=== PATIENT | female | born 1990 ===

== ENCOUNTER → 2020-07-28 14:39 | Outpatient (BNVA) | payer MEDICAID, SELFPAY | PROVIDERS: PCP Internal Medicine; Referring Provider Internal Medicine; Visit Provider Anesthesiology | DX: M47.27 Other spondylosis with radiculopathy, lumbosacral region (principal); M51.36 Other intervertebral disc degeneration, lumbar region | CPT/HCPCS: 99212 ==

== ENCOUNTER → 2020-09-29 14:10 | Outpatient (BNVA) | payer MEDICAID, SELFPAY | PROVIDERS: PCP Internal Medicine; Referring Provider Internal Medicine; Visit Provider Anesthesiology | DX: M47.27 Other spondylosis with radiculopathy, lumbosacral region (principal); M51.36 Other intervertebral disc degeneration, lumbar region | CPT/HCPCS: 99212 ==

== ENCOUNTER 2021-10-28 09:15 | Outpatient (REF) | payer MEDICAID, SELFPAY ==
--- NOTE | ~2021-10-28 | XR_ITS ---
EXAMINATION: XR KNEE, RIGHT CLINICAL INFORMATION: Pain in the right knee COMPARISON: None TECHNIQUE: Four views of the right knee. FINDINGS: Bones and soft tissues are normal. No fracture or joint effusion. Alignment is anatomic. Joint spaces are well maintained. No abnormal soft tissue calcification. XR/XR knee RT 4V IMPRESSION: Normal right knee.
== END 2021-10-28 09:16 | disposition home or self-care (01) ==
LOC: HO.XRAY 09:15
PROVIDERS: PCP Internal Medicine; Visit Provider Internal Medicine
DX: M25.561 Pain in right knee (principal)
CPT/HCPCS: 73564

== ENCOUNTER 2021-11-02 07:29 | Emergency (ER) | payer MEDICAID, SELFPAY ==
[2021-11-02 08:04] VITALS: BP 121/82; PULSE 110; RESP 17; TEMP 36; O2SAT 100; BMI 24.5
--- NOTE | 2021-11-02 08:45 | ED_ITS ---
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 She denies any recent travel or sick contacts. She denies any fevers, chills, dizziness, headache, neck pain/stiffness, trouble swallowing or breathing, chest pain or shortness of breath, cough, dyspnea on exertion, orthopnea, palpitations, nausea/vomiting or constipation, abdominal pain, rashes, weakness or any other symptoms complaints or concerns at this time. MD elicited complaint: sore throat Onset (ago): day(s) (2) Consistency: constant and progressively worsening Severity: mild Able to tolerate fluids by mouth: Yes Exacerbating factors: swallowing Relieving factors: nothing Associated symptoms: denies other symptoms Treatments prior to arrival: none Related Data Previous Rx's Medication Instructions Recorded gabapentin 400 mg capsule 400 mg PO TID PRN 30 Days #90 cap 09/29/20 amoxicillin 875 mg-potassium 1 tab PO BID 10 Days #20 tab 11/02/21 clavulanate 125 mg tablet Allergies Allergy/AdvReac Type Severity Reaction Status Date / Time No Known Allergies Allergy Verified 09/29/20 14:27 [No Known Allergies*] Review of Systems Review of Systems: Constitutional : No Weight loss, No Fever, No Chills, No Night Sweats, No Fatigue, No Malaise ENT/Mouth : Positive sore throat, No Hearing loss, No Ear Pain, No Nasal Congestion, No Sinus Pain, No Hoarseness, No Rhinorrhea, No Swallowing Difficulty Eyes: No Eye Pain, No Swelling, No Redness, No Foreign Body, No Discharge, No Vision Changes Cardiovascular : No Chest Pain, No SOB, No Dyspnea on Exertion, No Orthopnea, No Edema, No Palpitations Respiratory : No Cough, No Sputum, No Wheezing, No Smoke Exposure, No Dyspnea Gastrointestinal : No Nausea, No Vomiting, No Diarrhea, No Constipation, No abdominal Pain, No Hematochezia, No Melena Genitourinary : no irregular bleeding, No Dysuria, No Urinary Frequency, No Hematuria, No Urinary Incontinence, No Urgency, No Flank Pain, No Urinary Flow Changes, No Hesitancy Musculoskeletal : No joint pain, No Myalgias, No Joint Swelling Skin : No Skin Lesions, No rash Neuro : No Weakness, No Numbness, No Paresthesias, No Loss of Consciousness, No Dizziness, No Headache Psych : No Anxiety/Panic, No Depression, No SI/HI/AH/VH, No Social Issues, Heme/Lymph: No Bruising, No Bleeding,No Lymphadenopathy Endocrine : No Polyuria, No Polydipsia, No Temperature Intolerance Yes all other systems are reviewed and are negative [facility] Past Medical History Attestation statement: The following information was validated with the patient. Medical History Disc degeneration, lumbar Spondylosis of lumbosacral spine with radiculopathy Social History Social History Advance Directives: No Advance Directives Information Provided: Yes Patient : No Physical Exam Vital Signs: Vital Signs: Last Vital Signs Temp 96.8 F 11/02/21 08:04 Pulse 110 H 11/02/21 08:04 Resp 17 11/02/21 08:04 BP 121/82 11/02/21 08:04 Pulse Ox 100 11/02/21 08:04 BMI result Body Mass Index 24.5 vital signs have been reviewed as normal and appeared to be correct. Blood pressure normal. Heart rate 110. Respiration rate normal. Temperature normal. Oxygen saturation normal. Appearance: Alert. Oriented X3. No acute distress. Head: Normal external exam. Normocephalic. Atraumatic. Eyes: PERRLA. EOMI. Conjunctiva and sclera normal. Eyelids normal. ENT: EAC normal. TM's Normal. Posterior pharynx mildly erythematous tonsils noted to have exudate bilaterally. Uvula is midline. Moist mucous membranes. No trismus noted. No drooling noted. No muffled voice noted. Neck: Normal inspection. Neck supple. FROM. No adenopathy. Thyroid Normal. No meningeal signs. No neck mass noted. CVS: Normal heart rate and rhythm. Heart sound normal. Pulses normal throughout. No murmurs/rales/gallops. Respiratory: No respiratory distress. Painless inspiration. Breath sounds normal. No wheezes/rales/rhonchi noted. Chest nontender. No accessory muscle usage noted or decreased air movement noted. Back: Full range of motion noted. No rashes/lesion/induration/fluctuance or signs of infection noted. Skin: Skin warm and dry. Normal skin color. Normal skin turgor. No rashes/lesions/lacerations noted. Extremities: Extremities exhibit normal range of motion. Extremities nontender. Neuro: Oriented X 3. No motor deficit. No sensory deficit. Reflexes normal. Normal steady gait. No focal neuro deficits noted. Vascular: + radial pulses/+ 2 distal pedal pulses/+2 dorsalis pedis b/l. Normal cap refill. No cyanosis noted to upper extremity nails and lower extremity toes nails. 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 Will test for COVID and strep. If negative for COVID will DC home with antibiotics for strep along with instructions to return if any new or worsening symptoms follow-up with primary care provider and to self isolate per CDC guidelines. Patient understands agrees this plan. MDM - URI/Sore Throat Medical Records Attestation: I reviewed the patient's medical records. Lab Data Attestation: I reviewed the patient's lab results. Labs: Lab Results 11/02/21 11/02/21 Range/Units 09:08 09:08 COVID-19 (FRANTZ) Negative (Negative) COVID-19 Clin Com See Note S. pyogenes GrpA GISELLA Negative (Negative) Discharge Plan Discharge Clinical Impression: Acute bacterial pharyngitis Patient Disposition: Home, Self-Care Instructions: Pharyngitis (ED) Prescriptions: New amoxicillin-pot clavulanate 875-125 mg tablet 1 tab PO BID 10 Days Qty: 20 0RF No Action gabapentin 400 mg capsule 400 mg PO TID PRN (Reason: pain) 30 Days Qty: 90 6RF Referrals: Shalini Tobias MD [Primary Care Provider] - 2 days Stand Alone Forms: Work/School Release Print Language: Bahamian
[2021-11-02 09:50] LABS: IDNOW Serial# 9DD0AD1C; Strep A Nucleic Acid Negative (Negative)
[2021-11-02 09:57] LABS: COVID-19 Test Negative (Negative)
[2021-11-02] MEDS: Amoxicillin/Potassium Clav 875 MG TABLET PO (11:01)
[2021-11-02 11:19] VITALS: BP 112/74; PULSE 76; RESP 18; O2SAT 99
== END 2021-11-02 11:21 | disposition home or self-care (01) ==
PROVIDERS: Physician Assistant Medical; Emergency Provider Emergency Medicine; PCP Internal Medicine
DX: J02.9 Acute pharyngitis, unspecified (principal); Z20.822 Contact with and (suspected) exposure to COVID-19
CPT/HCPCS: 87635; 87651; 99283; 99284

== ENCOUNTER → 2022-08-27 09:31 | Outpatient (BNVA) | payer MEDICAID, SELFPAY | PROVIDERS: PCP Internal Medicine; Visit Provider Physician Assistant | DX: M47.27 Other spondylosis with radiculopathy, lumbosacral region (principal) | CPT/HCPCS: 99202 ==

== ENCOUNTER 2023-01-23 21:17 | Emergency (ER) | payer MEDICAID, SELFPAY ==
[2023-01-23 21:33] VITALS: BP 130/78; PULSE 80; O2SAT 99
[2023-01-23 21:55] VITALS: BP 127/84; PULSE 74; RESP 18; TEMP 36.3; O2SAT 98; BMI 27.8
[2023-01-23 22:32] LABS: MANUAL DIFF FLAG NO
[2023-01-23 22:36] LABS: Basophils Percent Auto 0.2 % (0-2); Eosinophils Absolute Auto 0.1 X10*3/uL (0.0-0.4); Hematocrit 34.4 % (37.0-47.0); Hemoglobin 11.2 g/dl (12.0-16.0); Imm Gran Abs Auto 0.04 X10*3/uL (0.00-0.03); Imm Gran Pct Auto 0.4 % (0.0-0.4); Lymphocytes Absolute Auto 1.7 X10*3/uL (1.2-4.9); Lymphocytes Percent Auto 15.1 % (20-40); Mean Corpuscular HGB Conc 32.6 g/dl (31.0-35.0); Mean Corpuscular Hemoglobin 27.2 pg (27.0-33.0); Mean Corpuscular Volume 83.5 fL (80.0-98.0); Mean Platelet Volume 9.5 fL (9.4-12.3); Monocytes Absolute Auto 0.6 X10*3/uL (0.1-1.2); Monocytes Percent Auto 5.2 % (2-11); Neutrophils Absolute Auto 8.9 x10*3/uL (2.0-8.3); Neutrophils Percent Auto 78.1 % (45-73); Platelet Count 268 X10*3/uL (160-400); Red Blood Count 4.12 X10*6/uL (4.20-5.50); Red Cell Distribution Width 13.7 % (11.0-16.0); White Blood Count 11.4 X10*3/uL (4.8-10.8)
[2023-01-23 22:56] LABS: Alanine Aminotransferase 15 U/L (0-31); Albumin Level 4.1 g/dL (3.5-5.0); Alkaline Phosphatase 65 U/L (39-117); Anion Gap 12 (12-20); Aspartate Amino Transferase 17 U/L (5-31); Bilirubin Total 0.2 mg/dL (0.0-1.0); Blood Urea Nitrogen 11 mg/dL (9-16); Calcium 9.7 mg/dL (8.4-10.2); Carbon Dioxide 27 mmol/L (22-29); Chloride 104 mmol/L (96-108); Creatinine Clr Calc Pharmacy 89.3; Estimated Glomerular Filt Rate > 60; Glucose Random 105 mg/dL (60-115); Potassium 4.4 mmol/L (3.3-5.1); Sodium 139 mmol/L (135-145)
[2023-01-24 00:57] VITALS: BP 119/63; PULSE 86; RESP 16; TEMP 36.9; O2SAT 99
[2023-01-24 01:14] LABS: Appearance Urine Clear; Color Urine Yellow; Glucose Urine UA Negative (Negative); Leukocyte Esterase Urine Negative (Negative); Nitrite Urine Negative (Negative); Urine Blood Negative (Negative); Urine Ketones Negative (Negative); Urine Protein Negative (Neg-Trace)
[2023-01-24 01:16] LABS: UPreg QC Valid YES; Urine Pregnancy NEGATIVE (NEGATIVE)
--- NOTE | 2023-01-24 01:21 | ED_ITS ---
HPI - General Adult General Chief complaint: Dizziness Stated complaint: Dizzy and Shaking Time Seen by Provider: 01/24/23 00:48 History of Present Illness HPI narrative: Patient is a 32-year-old female presents today with having dizziness which she complain as a spinning sensation. Fairly abrupt in onset. Associated with some epigastric pain. Pain is described as burning. Improved with sitting up. Worsened with lying down. Patient had some nausea associated with the spinning sensation very similar to previous bouts of anxiety. Denies any chest pain. No diaphoresis. No fever no chills. No history of diabetes, hypertension, high cholesterol, smoking. Patient from home. No coughing or congestion, upper respiratory symptoms. Related Data Home Medications Medication Instructions Recorded Confirmed fluticasone propionate 50 2 spray intranasal DAILY 08/27/22 mcg/actuation nasal spray,suspension Previous Rx's Medication Instructions Recorded gabapentin 400 mg capsule 400 mg PO TID PRN pain 30 days 09/29/20 #90 caps Allergies Allergy/AdvReac Type Severity Reaction Status Date / Time No Known Allergies Allergy Verified 01/23/23 21:55 [No Known Allergies*] Review of Systems Review of Systems: Dizziness Vertigo Yes all other systems are reviewed and are negative [facility] Past Medical History Attestation statement: The following information was validated with the patient. Medical History Disc degeneration, lumbar Spondylosis of lumbosacral spine with radiculopathy Social History Social History Advance Directives: No Advance Directives Information Provided: No Current occupational status: employed Current occupation: rt hand / [employer] Physical Exam ED Vital Signs: Vital Signs - 24 hr 01/23/23 21:55 01/24/23 00:57 Temperature 97.4 F 98.5 F Pulse Rate 74 86 Respiratory Rate 18 16 Blood Pressure 127/84 119/63 Pulse Oximetry 98 99 Oxygen Delivery Method Room Air Room Air BMI result Body Mass Index 27.8 Appearance: Alert. Oriented X3. No acute distress. Eyes: Pupils equal, round and reactive to light. ENT: Pharynx normal. Neck: Normal inspection. Neck supple. No lymph nodes noted. No crepitus CVS: Normal heart rate and rhythm. Pulses normal. Normal S1 and S2 Respiratory: No respiratory distress. Breath sounds normal. No Wheezing. No rales Abdomen: Soft and nontender. No rigidity. No distention. good BS x4 Skin: Skin warm and dry. Normal skin color. Normal skin turgor. Extremities: No lower extremity edema. Neurovascular intact to all extremities. No Lacerations. No Rash Neuro: Oriented X 3. No motor deficit. No sensory deficit. Moving all extermities. No slurred speech Medications Administered Discontinued Medications Generic Name Dose Route Start Last Admin Trade Name Freq PRN Reason Stop Dose Admin Al Hydroxide/Mg Hydroxide 30 ml 01/24/23 01:18 01/24/23 01:49 Magnesium Hydrox/Alum Hydrox 30 Ml Oral.Susp PO 01/24/23 01:19 30 ml ONCE ONE Administration Sodium Chloride 1,000 mls @ 999 mls/hr 01/24/23 01:15 01/24/23 03:58 Ns IV 01/24/23 02:15 Infused .Q1H1M [facility] Infusion Medical Decision Making Medical Decision Making MDM Narrative: Patient's urine showed no signs of infection. LFTs are normal. No evidence for biliary disease. Hemoglobin baseline 11. test was negative no evidence of related issues. Symptom improved with Maalox. Will discharge patient home. Interpretation patient's EKG showed a sinus pattern heart rate is 65 WA QRS QT within normal limits is no acute ST segment elevation noted. Patient has a history of anxiety. Likely the cause of patient's symptoms for Differential Diagnosis Differential Diagnoses: The differential diagnosis associated with the presentation includes Reflux, peripheral vertigo, dehydration, related issue, urinary tract infection Lab Data [facility] Lab Attestation statement: I reviewed the patient's lab results. 01/23/23 22:22 01/23/23 22:22 Labs: Lab Results 01/23/23 01/23/23 01/24/23 Range/Units 22:22 22:22 01:06 WBC 11.4 H (4.8-10.8) X10*3/uL RBC 4.12 L (4.20-5.50) X10*6/uL Hgb 11.2 L (12.0-16.0) g/dl Hct 34.4 L (37.0-47.0) % MCV 83.5 (80.0-98.0) fL MCH 27.2 (27.0-33.0) pg MCHC 32.6 (31.0-35.0) g/dl RDW 13.7 (11.0-16.0) % Plt Count 268 (160-400) X10*3/uL MPV 9.5 (9.4-12.3) fL Immature Gran % (Auto) 0.4 (0.0-0.4) % Neut % (Auto) 78.1 H (45-73) % Lymph % (Auto) 15.1 L (20-40) % [place] % (Auto) 5.2 (2-11) % Eos % (Auto) 1.0 (0-4) % Baso % (Auto) 0.2 (0-2) % Lymph # (Auto) 1.7 (1.2-4.9) X10*3/uL [place] # (Auto) 0.6 (0.1-1.2) X10*3/uL Eos # (Auto) 0.1 (0.0-0.4) X10*3/uL Baso # (Auto) 0.0 (0.0-0.2) X10*3/uL Abs Immat Gran (auto) 0.04 H (0.00-0.03) X10*3/uL Absolute Neuts (auto) 8.9 H (2.0-8.3) x10*3/uL Absolute Nucleated RBC 0.000 (0.0-0.012) X10*3/uL Nucleated RBC % (auto) 0.0 (0.0-0.2) /100WBC Sodium 139 (135-145) mmol/L Potassium 4.4 (3.3-5.1) mmol/L Chloride 104 (96-108) mmol/L Carbon Dioxide 27 (22-29) mmol/L Anion Gap 12 (12-20) BUN 11 (9-16) mg/dL Creatinine 0.79 (0.5-1.4) mg/dL Estim Creat Clear Calc 89.3 Estimated GFR > 60 Random Glucose 105 (60-115) mg/dL Calcium 9.7 (8.4-10.2) mg/dL Total Bilirubin 0.2 (0.0-1.0) mg/dL AST 17 (5-31) U/L ALT 15 (0-31) U/L Alkaline Phosphatase 65 (39-117) U/L Total Protein 7.0 (6.5-8.0) g/dL Albumin 4.1 (3.5-5.0) g/dL Lipase 25 (8-78) U/L Urine Color Yellow Urine Appearance Clear Urine pH 6.0 (5.0-9.0) Ur Specific Accident 1.010 (1.005-1.025) Urine Protein Negative (Neg-Trace) mg/dL Urine Glucose (UA) Negative (Negative) mg/dL Urine Ketones Negative (Negative) mg/dL Urine Blood Negative (Negative) Urine Nitrite Negative (Negative) Ur Leukocyte Esterase Negative (Negative) Urine Test (NEGATIVE) 01/24/23 Range/Units 01:06 WBC (4.8-10.8) X10*3/uL RBC (4.20-5.50) X10*6/uL Hgb (12.0-16.0) g/dl Hct (37.0-47.0) % MCV (80.0-98.0) fL MCH (27.0-33.0) pg MCHC (31.0-35.0) g/dl RDW (11.0-16.0) % Plt Count (160-400) X10*3/uL MPV (9.4-12.3) fL Immature Gran % (Auto) (0.0-0.4) % Neut % (Auto) (45-73) % Lymph % (Auto) (20-40) % [place] % (Auto) (2-11) % Eos % (Auto) (0-4) % Baso % (Auto) (0-2) % Lymph # (Auto) (1.2-4.9) X10*3/uL [place] # (Auto) (0.1-1.2) X10*3/uL Eos # (Auto) (0.0-0.4) X10*3/uL Baso # (Auto) (0.0-0.2) X10*3/uL Abs Immat Gran (auto) (0.00-0.03) X10*3/uL Absolute Neuts (auto) (2.0-8.3) x10*3/uL Absolute Nucleated RBC (0.0-0.012) X10*3/uL Nucleated RBC % (auto) (0.0-0.2) /100WBC Sodium (135-145) mmol/L Potassium (3.3-5.1) mmol/L Chloride (96-108) mmol/L Carbon Dioxide (22-29) mmol/L Anion Gap (12-20) BUN (9-16) mg/dL Creatinine (0.5-1.4) mg/dL Estim Creat Clear Calc Estimated GFR Random Glucose (60-115) mg/dL Calcium (8.4-10.2) mg/dL Total Bilirubin (0.0-1.0) mg/dL AST (5-31) U/L ALT (0-31) U/L Alkaline Phosphatase (39-117) U/L Total Protein (6.5-8.0) g/dL Albumin (3.5-5.0) g/dL Lipase (8-78) U/L Urine Color Urine Appearance Urine pH (5.0-9.0) Ur Specific Accident (1.005-1.025) Urine Protein (Neg-Trace) mg/dL Urine Glucose (UA) (Negative) mg/dL Urine Ketones (Negative) mg/dL Urine Blood (Negative) Urine Nitrite (Negative) Ur Leukocyte Esterase (Negative) Urine Test NEGATIVE (NEGATIVE) Independent Interpretation I performed an independent interpretation of an: EKG Interpretation: Sinus rhythm heart rate is [address] within normal limits as no acute ST segment elevation noted. External Record Review External record reviewed: Inpatient record Discharge Plan Discharge Clinical Impression: Anxiety Patient Disposition: Home, Self-Care Instructions: Panic Disorder (ED) Prescriptions: No Action gabapentin 400 mg capsule 400 mg PO TID PRN (Reason: pain) 30 Days Qty: 90 6RF fluticasone propionate 50 mcg/actuation spray,suspension 2 spray intranasal DAILY Referrals: Mamta Payton MD [Primary Care Provider] - 2 days
--- OUTSIDE RECORDS SUMMARY | 2023-01-24 01:23 | XMS_ITS | Continuity of Care Document ---
Author Name Unknown Organization [facility] [place] Address [address] [place] [id number]- Care Team Providers Care Research Neuropsychologist Name Role Phone Not on Staff, PCP Primary Care Physician Unavail able Encounter [facility] [place] Date(s): 06/09/21 - 07/09/[address] [address]- Attending Physician: Tyree Rodrigues Admitting Physician: Tyree Rodrigues Referring Physician: Tyree Rodrigues
--- OUTSIDE RECORDS SUMMARY | 2023-01-24 01:23 | XMS_ITS | Continuity of Care Document ---
Author Name Unknown Organization [facility] Address [address] [place] [id number]- Care Team Providers Care Band Booker Name Role Phone Not on Staff, PCP Primary Care Physician Unavail able Encounter [facility] Date(s): 07/28/22 - 08/27/[address] [address] Attending Physician: Tyree Rodrigues Admitting Physician: Tyree Rodrigues Referring Physician: [id number] Patient Care team information Care Team Personnel Name: Not on Staff, PCP Position: S Physician (General Medicine) Member Role: PCP
--- OUTSIDE RECORDS SUMMARY | 2023-01-24 01:23 | XMS_ITS | Continuity of Care Document ---
Author Name Unknown Organization [facility] Address [address] [place] [id number]- Care Team Providers Care Fixing Machine Operator Name Role Phone Not on Staff, PCP Primary Care Physician Unavail able [place] [facility] [place]01[place] - 10/01/[address] [address]- Attending Physician: Tyree Rodrigues Admitting Physician: Tyree Rodrigues Referring Physician: Tyree Rodrigues
[2023-01-24 01:28] LABS: Lipase 25 U/L (8-78)
[2023-01-24] MEDS: Magnesium Hydrox/Alum Hydrox 30 ML ORAL.SUSP PO (01:49)
[2023-01-24] MEDS: 0.9 % Sodium Chloride 1,000 ML 999 ML IV (01:49)
--- NOTE | 2023-01-24 04:18 | ECG_ITS ---
Test Reason : dizziness Blood Pressure : / mmHG Vent. Rate : 065 BPM Atrial Rate : 065 BPM P-R Int : 134 ms QRS Dur : 084 ms QT Int : 390 ms P-R-T Axes : 065 063 058 degrees QTc Int : 405 ms Normal sinus rhythm Normal EKG When compared with ECG of 28-FEB-2020 13:47, No significant change was found Referred By: Suzie Wheeler Electronically Signed By:SUHAIL JAY
[2023-01-24 05:24] VITALS: BP 117/72; PULSE 60; RESP 20; O2SAT 100
== END 2023-01-24 05:28 | disposition home or self-care (01) ==
PROVIDERS: Emergency Provider Emergency Medicine Emergency Medical Services; PCP Internal Medicine
DX: R42 Dizziness and giddiness (principal); F41.1 Generalized anxiety disorder; F43.0 Acute stress reaction; Z79.899 Other long term (current) drug therapy
CPT/HCPCS: 36415; 80053; 81003; 81025; 83690; 85025; 93005; 96360; 96361; 99284

== ENCOUNTER → 2023-02-01 10:20 | Outpatient (REF) | payer MEDICAID, SELFPAY ==
--- NOTE | 2023-02-01 10:24 | HM_ITS ---
* Total monitoring time 1 day. * Underlying rhythm is sinus. Average ventricular rate 82/Min. Range 51 to 188/Min. * About 15% of the time, rate > 100/Min. * Occasional supraventricular ectopy. [place] of 3.3%. * Rare ventricular ectopy. * No significant pauses or AV blocks. * No patient markers or diary events. MTDD
== END ==
LOC: HO.CARD 10:20
PROVIDERS: Visit Provider Internal Medicine
DX: I47.1 Supraventricular tachycardia (principal)
CPT/HCPCS: 93225

== ENCOUNTER 2023-02-12 10:56 | Emergency (ER) | payer MEDICAID, SELFPAY ==
[2023-02-12 10:59] VITALS: BP 136/85; PULSE 116; RESP 20; TEMP 36.6; O2SAT 98; BMI 24.6
[2023-02-12] MEDS: Ketorolac Tromethamine 30 MG/ML VIAL IM (13:34)
== END 2023-02-12 13:35 | disposition home or self-care (01) ==
PROVIDERS: Emergency Provider Internal Medicine; PCP Internal Medicine
DX: M54.2 Cervicalgia (principal)
CPT/HCPCS: 96372; 99283; 99284; J1885

== ENCOUNTER 2023-02-16 12:35 | Emergency (ER) | payer MEDICAID, SELFPAY ==
[2023-02-16 12:48] VITALS: BP 132/87; PULSE 78; RESP 20; TEMP 37.1; O2SAT 99; BMI 25.2
--- NOTE | 2023-02-16 12:49 | ED_ITS ---
HPI - General Adult General Chief complaint: General Medical Stated complaint: upper shoulder spasm , anxiety Time Seen by Provider: 02/16/23 15:12 History of Present Illness HPI narrative: patient with 2 complaints, 1st complaint is stiffness and discomfort on both sides of her neck and both trapezius for several weeks, no specific injury, no numbness or muscle weakness, she has had tingling in both arms and was given a course of prednisone which was helpful with that but now the tingling is back She also complains of feeling anxious frequently but denies chest pain shortness of breath, she has had no vomiting no abdominal pain no fainting or feeling faint no headache She has had intermittent episodes of dizziness with the room spinning relieved with medication previously prescribed, no dizziness now Related Data Home Medications Medication Instructions Recorded Confirmed fluticasone propionate 50 2 spray intranasal DAILY 08/27/22 mcg/actuation nasal spray,suspension Previous Rx's Medication Instructions Recorded gabapentin 400 mg capsule 400 mg PO TID PRN pain 30 days 09/29/20 #90 caps prednisone 20 mg tablet 40 mg PO DAILY #10 tabs 02/12/23 acetaminophen 500 mg tablet 1,000 mg PO QID PRN pain #30 tabs 02/16/23 lorazepam 1 mg tablet (Ativan) 1 mg PO BID PRN anxiety #7 tabs 02/16/23 Allergies Allergy/AdvReac Type Severity Reaction Status Date / Time No Known Allergies Allergy Verified 01/23/23 21:55 [No Known Allergies*] [facility] Past Medical History Source: nursing notes reviewed Medical History Disc degeneration, lumbar Spondylosis of lumbosacral spine with radiculopathy Social History Social History Alcohol intake: never Current occupational status: employed Current occupation: rt hand / [employer] Physical Exam ED Vital Signs: Vital Signs - 24 hr 02/16/23 12:48 Temperature 98.7 F Pulse Rate 78 Respiratory Rate 20 Blood Pressure 132/87 Pulse Oximetry 99 Oxygen Delivery Method Room Air BMI result Body Mass Index 25.2 General appearance is no acute distress Head is normocephalic atraumatic The neck had mildly restricted range of motion due to pain but no nuchal rigidity There was bilateral paraspinal muscle tenderness with some spasm as well as bilateral trapezius tenderness, skin of the neck was normal Chest clear to auscultation bilateral, no respiratory distress, chest wall nontender Heart no murmur Abdomen soft nontender Extremities for range of motion x4 no calf tenderness or swelling no edema Skin no rash Neuro gait and balance are normal, principal software engineer strength is 5/5 bilateral and symmetrical, motor is 5/5 x4, sensation in all extremities is intact and symmetrical Course Course Course Narrative: This is an RME: Additional HPI, ROS, PE not included below will be deferred to primary provider. This is a 32 year old female presenting to the ER with complaints of continued dizziness and right sided neck pain x 1 month. Has been seen on 01/24/2023 for the same symptoms. Dx with anxiety. VSS. Right sided cervical spinous muscles and trapezius with spasm. Pt stable to return to the until treatment room becomes available. Patient with complaint that she has been very anxious lately but not suicidal homicidal or hearing any voices, has also had 1 month of neck tightness and spasm After discussion a treated the spasm with Ativan to use if needed for severe spasm or for anxiety, I discussed with her to see her primary care doctor as she gets anxiety frequently to discuss a better long-term medication for anxiety, she will use Tylenol and Motrin for the neck pain There was no neurologic deficit or change to bowel or bladder, her anxiety was not accompanied by chest pain or shortness of breath and well-appearing patient was discharged Discharge Plan Discharge Clinical Impression: Anxiety, Neck pain Patient Disposition: Home, Self-Care Additional Instructions: I added acetaminophen to the ibuprofen to be used for your neck pain and shoulder pain I wrote a prescription for Ativan which could be used occasionally for anxiety, but it is habit forming and not a long-term solution so best plan is to follow with primary doctor when you see them next week and discuss whether it would be helpful to be on a anxiety prevention medication Return any time any worse condition or any concerns Prescriptions: New acetaminophen 500 mg tablet 1,000 mg PO QID PRN (Reason: pain) Qty: 30 0RF lorazepam [Ativan] 1 mg tablet 1 mg PO BID PRN (Reason: anxiety) Qty: 7 0RF No Action prednisone 20 mg tablet 40 mg PO DAILY Qty: 10 0RF gabapentin 400 mg capsule 400 mg PO TID PRN (Reason: pain) 30 Days Qty: 90 6RF fluticasone propionate 50 mcg/actuation spray,suspension 2 spray intranasal DAILY Interventions: ED Discharge Assessment Last Done: 02/16/23 16:15 Discharge Date/Time: 02/16/23 16:16
[2023-02-16 16:14] VITALS: BP 134/78; PULSE 64; RESP 17; O2SAT 100
== END 2023-02-16 16:16 | disposition home or self-care (01) ==
PROVIDERS: Emergency Provider Emergency Medicine; PCP Internal Medicine
DX: F41.9 Anxiety disorder, unspecified (principal); M54.2 Cervicalgia
CPT/HCPCS: 99283; 99284